=== PATIENT | male | born 1970 | race Caucasian/White ===

== ENCOUNTER 2019-01-14 08:00 | Emergency (ER) | payer OTHER, MEDICAID, SELFPAY ==
[2019-01-14 08:00] VITALS: BP 106/75; PULSE 84; RESP 18; TEMP 36.7; O2SAT 96; BMI 24.4
--- NOTE | 2019-01-14 08:45 | PC.NURSE ---
pt given an ice pack for his neck pain at this time per his request.
[2019-01-14 08:50] VITALS: BP 109/75; PULSE 67; O2SAT 96
--- NOTE | 2019-01-14 09:05 | HMH.EDGENADL ---
ED Disposition Clinical Impression: Cervical radiculopathy, Cervical disc disease, Bipolar disorder, History of alcohol abuse, History of drug use disorder Disposition: Home, Self-Care Condition on Discharge: Fair Additional Instructions: 1- robaxin, medrol dose pack, zantac and toradol as needed. 2- need a n MRI by PCP as we discussed. 3- needs neurosurgery consultation. 4- to return for any weakness or sphincter disturbance. Prescriptions: methylPREDNISolone [Medrol] 4 mg PO UD DOSE PK #21 tab.ds.pk Methocarbamol [Robaxin 750mg Tab] 750 mg PO BID #14 tab Ketorolac Tromethamine [Toradol 10mg tablet] 10 mg PO Q12H #6 tab raNITIdine HCl [Zantac] 150 mg PO BID #14 tab Referrals: Provider,Referral, MD [Primary Care Provider] - - Critical Care Critical Care Time: No Attestation: On 01/14/19, the high probability of a clinically significant, sudden or life threatening deterioration of the following system(s) required my full and direct attention, intervention and personal management. The time I documented below is in addition to time spent performing reported procedures but includes the following listed in this critical care notation. Medical Decision Making - Medical Records Medical records reviewed: Yes: I reviewed the patient's medical records. - Liam Inquiry Pt receiving controlled substance: No Liam was queried for this patient: No Vital Signs: 01/14/19 08:00 01/14/19 08:50 Temperature 98.0 F Temperature Source Oral Pulse Rate [Right Radial] 84 67 Respiratory Rate 18 Blood Pressure [Right Arm] 106/75 L 109/75 L Blood Pressure Mean [Right Arm] 85 86 Blood Pressure Source [Right Arm] Automatic Cuff Automatic Cuff Blood Pressure Position [Right Arm] Sitting Sitting 02 Sat by Pulse Oximetry 96 96 Oxygen Delivery Method Room Air Room Air Orders (Tests/Meds): ED MEDICATIONS Discontinued Medications Generic Name Dose Route Start Last Admin Trade Name Freq PRN Reason Stop Dose Admin Ketorolac Tromethamine 60 mg 01/14/19 09:23 01/14/19 09:32 Toradol 60mg/2ml Vial IM 01/14/19 09:24 Not Given ONCE ONE Ketorolac Tromethamine 30 mg 01/14/19 09:31 01/14/19 09:31 Toradol 30mg/Ml Vial IV 01/14/19 09:32 30 mg ONCE ONE Administration Methylprednisolone Sodium Succinate 125 mg 01/14/19 09:26 01/14/19 09:31 Solu-Medrol 125mg/2ml Vial IM 01/14/19 09:27 125 mg ONCE ONE Administration ORDERS Category Date Time Status Cervical spine XR 5 views [XR cervical spine 5V] Stat Exams 01/14/19 09:23 Taken - Radiology Data #1 Image(s): C-Spine Image Reviewed: Yes I reviewed the patient's radiology image Preliminary Findings: Abnormal Cx x rays 5 views: Degenerative joint changes of the cervical spine max between C6 and C7 Medical Decision Narrative: I spoke with the patient about obtaining a primary care physician affiliated with [facility], I spoke with Evelyn Swift the nurse practitioner but he declined as he wanted to go to [facility]. [place] [facility] and is going to find a primary care physician in the area, he will call back to obtain records to continue his care. General Adult HPI - General Chief complaint: PAIN Stated complaint: L sided neck pain Time Seen by Provider: 01/14/19 08:00 Mode of Arrival: EMS Limitations: No Limitations Description of Symptoms (Recalled from ER Triage Doc. by RN): Pt c/o L sided neck and shoulder blade pain with tingling and pain down L arm. Pt reports pain began approx 1 month ago, reports he was seen here at that time and was told her had a herniated disc. Pt reports tingling down his L arm got worse lastnight, pt reports pain when trying to turn his neck. - History of Present Illness HPI narrative: 48 years old white male with past medical history of bipolar disorder, alcohol use disorder and drug use disorder early in life.
--- NOTE | 2019-01-14 09:13 | ED_ITS ---
ED Disposition Clinical Impression: Cervical radiculopathy, Cervical disc disease, Bipolar disorder, History of alcohol abuse, History of drug use disorder Disposition: Home, Self-Care Condition on Discharge: Fair Additional Instructions: 1- robaxin, medrol dose pack, zantac and toradol as needed. 2- need a n MRI by PCP as we discussed. 3- needs neurosurgery consultation. 4- to return for any weakness or sphincter disturbance. Prescriptions: methylPREDNISolone [Medrol] 4 mg PO UD DOSE PK #21 tab.ds.pk Methocarbamol [Robaxin 750mg Tab] 750 mg PO BID #14 tab Ketorolac Tromethamine [Toradol 10mg tablet] 10 mg PO Q12H #6 tab raNITIdine HCl [Zantac] 150 mg PO BID #14 tab Referrals: Provider,Referral, MD [Primary Care Provider] - - Critical Care Critical Care Time: No Attestation: On 01/14/19, the high probability of a clinically significant, sudden or life threatening deterioration of the following system(s) required my full and direct attention, intervention and personal management. The time I documented below is in addition to time spent performing reported procedures but includes the following listed in this critical care notation. Medical Decision Making - Medical Records Medical records reviewed: Yes: I reviewed the patient's medical records. - Liam Inquiry Pt receiving controlled substance: No Liam was queried for this patient: No Vital Signs: 01/14/19 08:00 01/14/19 08:50 Temperature 98.0 F Temperature Source Oral Pulse Rate [Right Radial] 84 67 Respiratory Rate 18 Blood Pressure [Right Arm] 106/75 L 109/75 L Blood Pressure Mean [Right Arm] 85 86 Blood Pressure Source [Right Arm] Automatic Cuff Automatic Cuff Blood Pressure Position [Right Arm] Sitting Sitting 02 Sat by Pulse Oximetry 96 96 Oxygen Delivery Method Room Air Room Air Orders (Tests/Meds): ED MEDICATIONS Discontinued Medications Generic Name Dose Route Start Last Admin Trade Name Freq PRN Reason Stop Dose Admin Ketorolac Tromethamine 60 mg 01/14/19 09:23 01/14/19 09:32 Toradol 60mg/2ml Vial IM 01/14/19 09:24 Not Given ONCE ONE Ketorolac Tromethamine 30 mg 01/14/19 09:31 01/14/19 09:31 Toradol 30mg/Ml Vial IV 01/14/19 09:32 30 mg ONCE ONE Administration Methylprednisolone Sodium Succinate 125 mg 01/14/19 09:26 01/14/19 09:31 Solu-Medrol 125mg/2ml Vial IM 01/14/19 09:27 125 mg ONCE ONE Administration ORDERS Category Date Time Status Cervical spine XR 5 views [XR cervical spine 5V] Stat Exams 01/14/19 09:23 Taken - Radiology Data #1 Image(s): C-Spine Image Reviewed: Yes I reviewed the patient's radiology image Preliminary Findings: Abnormal Cx x rays 5 views: Degenerative joint changes of the cervical spine max between C6 and C7 Medical Decision Narrative: I spoke with the patient about obtaining a primary care physician affiliated with [facility], I spoke with Evelyn Swift the nurse practitioner but he declined as he wanted to go to [facility]. He is going to [facility] for a sober living house and is going to find a primary care physician in the area, he will call back to obtain records to continue his ca
--- NOTE | 2019-01-14 09:23 | XR_ITS ---
XR cervical spine 5V Ordering Physician: Carlene Lema MD Patient Age: 48 years: Male HISTORY: ITS.REASON: non traumatic neck pain pain and neck one month progressive. Injured from working pain increasing the past 4 days and radiates down left arm TECHNIQUE: Five-view cervical spine series COMPARISON : 3 view C-spine from november 2018 FINDINGS Nonspecific straightening of the cervical spine.. Prevertebral soft tissues normal. Review of C-spine begins inferiorly: . Small cervical ribs incidentally noted at C7. -Most evident on the right where the cervical rib measures over 3 cm length. Left cervical rib 2.5 seem in length.Apices the lungs clear .. C7/T1 disc intact. .. Foramen widely patent. C6/7.... Degenerative Disc space narrowing most pronounced at this level. Anterior marginal osteophytes most evident at this level.. There is posterior hypertrophic ridging. With spurring yielding mild bilateral foraminal encroachment most evident to the right. Also mild facet arthropathy C6/7 more evident on right.. C5-C6.: Minimal Degenerative disc space narrowing. Mild cervical spondylosis. Posterior Spurring yields mild foraminal encroachment to the left. C4/5. Disc intact. Neural foramen patent C3/4. Bilateral facet hypertrophy spurring yielding encroaches upon foramen bilaterally. There is also minimal posterior hypertrophic ridging and uncovertebral joint spurring which yields some foraminal encroachment. Overall features yield mild/moderate foraminal encroachment bilaterally at C3/4 C2/3. Disc and intact. Facets with normal relationships. Degenerative changes at the facets as detailed in text. . C1-C2 relationships appear normal on open mouth view. Odontoid intact. ... IMPRESSION...... 1. Bilateral foraminal encroachment most evident C5-C6 and C3/4.: ... C6/7: Degenerative disc narrowing/& cervical spondylosis most pronounced this level Features combine to yield mild/moderate bilateral foraminal encroachment ... C3/4. Disc height maintained but Facet hypertrophy along with uncovertebral joint hypertrophy, yields moderate bilateral foraminal encroachment Also note at C5-C6. Leftward Spurring yields mild left foraminal encroachment. 2. Bilateral cervical ribs again noted : .
[2019-01-14 10:41] VITALS: BP 132/88; PULSE 78; RESP 18; TEMP 36.6; O2SAT 98
== END 2019-01-14 10:42 | disposition home or self-care (01) ==
PROVIDERS: Emergency Provider Emergency Medicine
DX: M54.12 Radiculopathy, cervical region (principal); M50.90 Cervical disc disorder, unspecified, unspecified cervical region; F31.9 Bipolar disorder, unspecified; F10.11 Alcohol abuse, in remission; Z87.898 Personal history of other specified conditions; F17.210 Nicotine dependence, cigarettes, uncomplicated
CPT/HCPCS: 72050; 96372; 99282